=== PATIENT | female | born 2000 | race Asian ===

== ENCOUNTER 2024-09-15 14:18 | Emergency (ER) | payer OTHER, SELFPAY ==
--- NOTE | ~2024-09-15 | XR_ITS ---
XR elbow RT min 3V 09/15/2024 14:55 INDICATION: Right elbow pain PROCEDURE: 4 views right elbow COMPARISON: No prior studies for comparison. FINDINGS: Fracture, dislocation or subluxation is not identified. The soft tissues appear within norm al limits. No foreign bodies are identified. IMPRESSION: 1: NO ACUTE BONE OR JOINT ABNORMALITY IDENTIFIED. Reviewed, dictated and finalized at location A.
--- NOTE | 2024-09-15 14:28 | ED_ITS ---
HPI - Extremity Injury (Upper) General Chief Complaint: Extremity Injury, Upper Stated Complaint: Injured R Hand Time Seen by Provider: 09/15/24 14:36 Source: patient, RN notes reviewed and old records reviewed Mode of arrival: ambulatory Limitations: no limitations History of Present Illness HPI narrative: 23-year-old female presents to the [facility] with complaints of right elbow pain. Patient reports that 2:00 a.m. she went to pull a cord, slipped and fell onto her elbow. Denies hitting head. No loss of consciousness. No back or neck pain. MD complaint: injury to: elbow Related Data Home Medications ?Medication ?Instructions ?Recorded ?Confirmed ?Last Taken ?Type No Home Medications 09/15/24 09/15/24 Unknown History Allergies Allergy/AdvReac Type Severity Reaction Status Date / Time No Known Allergies Allergy Verified 09/15/24 14:37 Review of Systems Review of Systems: All systems reviewed & are unremarkable except as noted in HPI and below Constitutional: Constitutional: Reports no additional constitutional complaints ENT: Reports system reviewed and no additional complaints, except as documented Cardiovascular: Cardiovascular: Reports no additional cardiovascular complaints, Denies chest pain and Denies dyspnea Respiratory: Respiratory: Reports no additional respiratory complaints, Denies chest congestion, Denies cough and Denies dyspnea Musculoskeletal: Musculoskeletal: Reports as per HPI Integumentary/Breasts: Skin/Breast: Reports system reviewed and no additional complaints, except as docu PMFSH Comments At the time of my signature, I reviewed and agree with the nursing past medical, surgical, social, and family history. There is no relevant family history pertinent to the patient complaint. Exam Const: General: cooperative, healthy appearing, comfortable, no acute distress, well developed, alert and well nourished Nutritional Appearance: well nourished Orientation/consciousness: patient oriented x3 Limitations: no limitations HENMT: Head: normal to inspection Eyes: General: appearance normal, both eyes and all related structures Alignment and Position: alignment normal Neck: Neck: normal visual inspection, full ROM, no lymphadenopathy and no meningeal signs Chest: Chest palpation & inspection: normal inspection of the chest Resp: Effort & Inspection: normal respiratory effort and able to speak in complete sentences Cardio: Rate: regular rate Back/Spine/Pelvis: Back: No back tenderness Cervical Spine: No Cervical spine tenderness Thoracic/Lumbar Spine: No thoracic spinal tenderness and No lumbar spinal tenderness Skin: General skin exam: normal color and no rashes or lesions noted Neuro: General: patient oriented x3, gait normal, moves all extremities and no meningeal signs Cognition (Neuro): normal cognition Speech: normal speech Gait exam (Neuro): Normal gait present Extrem: General: normal to inspection, full ROM, capillary refill normal and normal gait Right upper extremity: elbow/forearm tenderness (Medial aspect) and distal pulses intact; no swelling, no unusual warmth, no abrasions, no lacerations, no ecchymosis, no crepitus, no foreign bodies, no penetrating wound and no deformity, wrist normal to inspection, normal ROM and normal vascular exam; no tenderness and no swelling and Extremity exam: right hand normal to inspection, normal capillary refill and neuromotor exam normal wrist extension normal, thumb opposition normal, thumb IP flexion normal, thumb ADduction normal and fingers 2-5 ABduction normal Psych: Appearance: grossly normal and well kempt Mental Status: mental status grossly normal Speech and movement: Normal speech and movement present and Clear speech present Affect: normal affect Attitude: cooperative Course Course Level of Care: Express Care Visit Vital Signs Vital signs: Vital Signs Temperature 99.3 F 09/15/24 14:32 Pulse Rate 86 09/15/24 14:32 Respiratory Rate 16 09/15/24 14:32 Blood Pressure 105/71 09/15/24 14:32 Pulse Oximetry 100 09/15/24 14:32 Oxygen Delivery Room Air 09/15/24 14:32 Temperature 99.3 F 09/15/24 14:32 Pulse Rate 86 09/15/24 14:32 Respiratory Rate 16 09/15/24 14:32 Blood Pressure 105/71 09/15/24 14:32 Pulse Oximetry 100 09/15/24 14:32 Oxygen Delivery Room Air 09/15/24 14:32 Reviewed MDM - Extremity Injury (Upper) MDM Narrative Medical decision making narrative: Patient sitting in exam room. Patient is nontoxic, vitals are stable. Patient presents with elbow discomfort. X-ray is negative. Most likely contusion to the elbow from fall. Patient appropriate for outpatient treatment with close follow-up Differential Diagnosis Differential diagnosis: Likely other (Elbow fracture, elbow contusion, elbow sprain) Imaging Data Radiologist's impression: XR elbow RT min 3V 09/15/2024 14:55 INDICATION: Right elbow pain PROCEDURE: 4 views right elbow COMPARISON: No prior studies for comparison. FINDINGS: Fracture, dislocation or subluxation is not identified. The soft tissues appear within normal limits. No foreign bodies are identified. IMPRESSION: 1: NO ACUTE BONE OR JOINT ABNORMALITY IDENTIFIED. Critical Care Time Critical Care Time Critical Care Time: No Discharge Plan Discharge Clinical Impression: Contusion of elbow, right Patient Disposition: Home Condition: Stable Instructions: Antibiotic Form, Contusion in Adults (ED), Elbow Sprain (ED) Additional Instructions: Your Xray did not show a fracture. Ice should be applied to help reduce swelling. It can be used for 20 to 30 minutes, every 2-3 hours while awake. Do not apply ice directly to your skin. You can alternate ibuprofen 600mg and Tylenol 650mg every 4 hours as needed for pain Please schedule a follow-up visit with your personal physician for further evaluation and treatment within 2 weeks especially if symptoms persist. For new or worsening symptoms go directly to the emergency room Patient Language: Indonesian Prescriptions: No Action No Home Medications Follow-up/Referrals: PHYSICIAN,BUTTON RIVETER [Primary Care Provider] - Stand Alone Forms: Work/School Release IP Time of Disposition: 15:07
[2024-09-15 14:32] VITALS: BP 105/71; PULSE 86; RESP 16; TEMP 37.4; O2SAT 100
== END 2024-09-15 15:09 | disposition home or self-care (01) ==
PROVIDERS: Emergency Provider Nurse Practitioner
DX: S50.01XA Contusion of right elbow, initial encounter (principal); W01.0XXA Fall on same level from slipping, tripping and stumbling without subsequent striking against object, initial encounter
CPT/HCPCS: 73080; 99203; G0463